=== PATIENT | male | born 1985 | race Caucasian/White ===

== ENCOUNTER 2023-04-07 08:39 | Outpatient (OUT) | payer OTHER, SELFPAY ==
--- NOTE | 2023-04-07 08:52 | XR_ITS ---
The [address] [address] Patient Name: ELI GAN MRN: [id number] date: 1985 Sex: M Assigned Patient Location: RAD Current Patient Location: [facility] Accession/Order Number: [id number] Exam Date: 04/07/2023 08:57 Report Date: 04/07/2023 09:27 At the request of: NON-STAFF PHYSICIAN Procedure: XR hand LT 2V PROCEDURE: XR hand LT 2V COMPARISON: None. HISTORY: Arthritis M13.80 FINDINGS: BONES:No fracture, acute abnormality, or significant arthropathy. SOFT TISSUES:Negative. No visible soft tissue swelling. EFFUSION:None visible. OTHER: Negative. XR/XR hand LT 2V IMPRESSION: No acute radiographic abnormality Electronically authenticated by: KYMBERLY MORALES Date: 04/07/2023 09:27
== END 2023-04-07 08:40 | disposition home or self-care (01) ==
LOC: RAD 08:45
DX: M13.80 Other specified arthritis, unspecified site (principal)
CPT/HCPCS: 73120

== ENCOUNTER 2023-05-19 08:10 | Outpatient (OUT) | payer OTHER, SELFPAY ==
--- NOTE | 2023-05-19 08:19 | XR_ITS ---
The [address] [address] Patient Name: ELI GAN MRN: [id number] date: 1985 Sex: M Assigned Patient Location: [facility] Current Patient Location: [facility] Accession/Order Number: [id number] Exam Date: 05/19/2023 08:24 Report Date: 05/19/2023 12:01 At the request of: NON-STAFF PHYSICIAN Procedure: XR hand LT 2V EXAM: XR hand LT 2V. HISTORY: Arthritis M13.80. COMPARISON: Left hand study dated 04/07/2023. TECHNIQUE: AP and lateral views of the left hand were obtained. FINDINGS: No definite acute fracture or dislocation. Faint approximately 4 x 3 mm lucency at the level of the lunate like representing benign cortical defect or other benign cystic process, not felt to be acutely significant. Minimal degenerative changes suggested about the interphalangeal joints. Soft tissues are grossly within normal limits. XR/XR hand LT 2V IMPRESSION: Left hand study demonstrates likely benign cortical defect or other benign cystic process in the lunate, not felt to be acutely significant. Minimal degenerative changes as described. Follow-up as needed. Electronically authenticated by: CAIN LOPEZ Date: 05/19/2023 12:01
== END 2023-05-19 08:11 | disposition home or self-care (01) ==
LOC: RAD 08:15
DX: M13.80 Other specified arthritis, unspecified site (principal)
CPT/HCPCS: 73120